=== PATIENT | female | born 1955 | race Caucasian/White ===

== ENCOUNTER 2024-08-15 05:53 | Inpatient (IN) | payer MEDICARE, OTHER ==
[~2024-08-15] VITALS: Ht 170.2 cm; Wt 69.9 kg
[2024-08-15] VITALS (17 sets, daily range): BP systolic 145–201; BP diastolic 71–101
[2024-08-15] MEDS ORDERED: Albuterol 2.5 MG/3 ML VIAL INH SCH ×2 (06:15→17:15)
[2024-08-15] MEDS ORDERED: MethylPREDNISolone Sod Succ 125 MG Vial IV ONE (06:15)
[2024-08-15 06:20] LABS: BASOPHILS PERCENT AUTO 1 % (0-2); EOSINOPHILS ABSOLUTE AUTO 0.57 K/mm3 (0.00-0.68); EOSINOPHILS PERCENT AUTO 3 % (0-6); Hematocrit 36.9 % (33.0-51.0); IMMATURE GRAN ABSOLUTE AUTO 0.11 K/mm3 (0.00-0.10); IMMATURE GRAN PERCENT AUTO 1 % (0-1); LYMPHOCYTES ABSOLUTE AUTO 2.71 K/mm3 (0.84-5.20); LYMPHOCYTES PERCENT AUTO 15 % (21-46); MONOCYTES PERCENT AUTO 6 % (4-13); Mean Corpuscular HGB 31.4 pg (26.0-34.0); Mean Corpuscular HGB Conc 32.5 g/dL (31.5-36.5); Mean Corpuscular Volume 97 fL (80-100); Mean Platelet Volume 9.8 fL (9.1-12.4); NEUTROPHILS ABSOLUTE AUTO 13.72 K/mm3 (1.96-9.15); NEUTROPHILS PERCENT AUTO 75 % (41-73); Platelet Count 476 K/mm3 (150-400); RDW Standard Deviation 49.6 fL (35.1-46.3); Red Blood Cell Count 3.82 M/mm3 (3.80-5.20); White Blood Cell Count 18.21 K/mm3 (4.00-11.30)
[2024-08-15] MEDS ORDERED: CefTRIAXone Sodium 1,000 MG in NS 100 ML IV ONE ×2 (06:35→09:30)
[2024-08-15] MEDS ORDERED: Azithromycin 500 MG in NS 250 ML IV ONE (06:35)
[2024-08-15 06:47] LABS: Albumin, Blood 3.5 g/dL (3.4-5.0); Albumin/Globulin Ratio 0.6 (0.8-1.8); Bilirubin, Total 0.4 mg/dL (0.1-1.0); Bun/Creatinine Ratio 10.2 (12.0-20.0); Calcium, Blood 9.1 mg/dL (8.5-10.1); Creatinine, Blood 7.93 mg/dL (0.40-1.00); Globulin, Blood 5.4 g/dL (2.2-4.0); Total Protein, Blood 8.9 g/dL (6.4-8.2)
[2024-08-15 07:27] LABS: Influenza A, PCR NEGATIVE (NEGATIVE); Influenza B, PCR NEGATIVE (NEGATIVE); SARS-Cov-2 (COVID-19) PCR, MMC NEGATIVE (NEGATIVE)
[2024-08-15 07:33] LABS: Resp Syncytial Virus, PCR POSITIVE (NEGATIVE)
[2024-08-15] MEDS ORDERED: ZINC OXIDE/PETROLATUM, YELLOW 1 APPLIC/71 GM PASTE TOP PRN (12:25)
[2024-08-15] MEDS ORDERED: ARTIFICIAL TEAR15 M2 (12:42)
[2024-08-15] MEDS ORDERED: GENTEAL TEARS3.5 GM (12:43)
[2024-08-15] MEDS ORDERED: VITAMIN B COMP1 EAC1 PO (12:44)
[2024-08-15] MEDS ORDERED: THERA-D2000 UNIT PO (12:44)
[2024-08-15] MEDS ORDERED: PSYLLIUM FIBER0.4 GM PO (12:45)
[2024-08-15] MEDS ORDERED: LOPE2C PO (12:45)
[2024-08-15] MEDS ORDERED: ASPIR 8181 M1 PO (12:47)
[2024-08-15] MEDS ORDERED: CARV3.125 PO (12:48)
[2024-08-15] MEDS ORDERED: GABA100 PO (12:48)
[2024-08-15] MEDS ORDERED: CLOP75 PO (12:48)
[2024-08-15] MEDS ORDERED: LOVA40 PO (12:48)
[2024-08-15] MEDS ORDERED: MIRT15 PO (12:49)
[2024-08-15] MEDS ORDERED: SEVELAMER HCL800 MG PO (12:52)
[2024-08-15] MEDS ORDERED: ALBUTEROL0.63 MG/3 INH (12:53)
[2024-08-15] MEDS ORDERED: TORSE20 (12:54)
[2024-08-15] MEDS ORDERED: Heparin Sodium,Porcine 5,000 UNIT/0.5 ML SDV SC SCH (14:00)
[2024-08-15] MEDS ORDERED: Artificial Tear Opth Oint 3.5 GM BOTHEYES PRN (14:45)
[2024-08-15] MEDS ORDERED: Sevelamer Carbonate 800 MG Tab PO PRN (14:50)
[2024-08-15] MEDS ORDERED: MUPIROCIN2210 (15:28)
[2024-08-15] MEDS ORDERED: ROPI.25 PO (15:37)
[2024-08-15] MEDS ORDERED: BENZ100A PO (15:43)
--- NOTE | 2024-08-15 16:17 | NUR ---
UPon receiving a referral for spiritual care, I visited the patient. Her son, Garland, is bedside. THe patietn tells me about her medical problems and the plan of care moving forward. She then talks about their travels to [place] to go to the of her dtr. She talks about her ros, their hoe in [place] and her son's insistance on bringing her to the hospital. I established therapeutic alignment, and listened empathically and provided prayer. Patient responded well and showed signs of being encouraged in her ros. I will continue to approach the issues of grief and loss, next visit.
[2024-08-15] MEDS ORDERED: Carvedilol 3.125 MG Tab PO SCH (17:00)
[2024-08-15] MEDS ORDERED: Ipratropium/Albuterol SulF 2.5-0.5MG/3 ML Amp INH PRN (17:15)
[2024-08-15] MEDS ORDERED: Sevelamer Carbonate 800 MG Tab PO SCH (17:30)
[2024-08-15] MEDS ORDERED: Albuterol 2.5 MG/3 ML VIAL INH PRN (17:40)
--- NOTE | 2024-08-15 18:03 | NUR ---
SHIFT ASSESSMENT: PT A&OX4. FOLLOWS COMMANDS AND MAKES NEEDS KNOWN TO STAFF. CALLS APPROPRIATELY. PT HAS DENIED ANY COMPLAINTS OF CP, PRESSURE OR TIGHTNESS DURING SHIFT. PT REPORTED SOB OFF AND ON DURING SHIFT. A DUONEB WAS ORDERED PER PROVIDER ORDERS. PT REPORTS RELIEF POST BREATHING TX. WAS ABLE TO GET UP TO BSC WITH 1P ASSIST. HAS BEEN CONTINENT ALL DAY. PLAN FOR DIALYSIS THIS EVENING. NO OTHER SIGNIFICANT EVENTS HAPPENED DURING THIS SHIFT. WILL CONTINUE TO CARE FOR PT TILL END OF SHIFT.
[2024-08-15] MEDS ORDERED: Mirtazapine 15 MG Tab PO SCH (21:00)
[2024-08-15] MEDS ORDERED: Gabapentin 100 MG Cap PO SCH (21:00)
[2024-08-15] MEDS ORDERED: Lactobacil 2-S.Thermo-Bifido 1 1 Cap PO SCH (21:00)
--- NOTE | 2024-08-15 22:30 | NUR ---
UPDATE PATIENT BACK TO ROOM FROM DIALYSIS. PATIENT HAS BEEN IN DIALYSIS SINCE AROUND 1900. ASSUMING CARE OF PATIENT AT THIS TIME. PATIENT ALERT, ORIENTED x3-4, FORGETFUL IN CONVERSATION. PATIENT HYPERTENSIVE AFTER DIALYSIS, PER BOW STAPLER, PATIENT HYPERTENSIVE DURING TREATMENT WELL. ON 2L NC WITH SPO2 >90%. TELE READING SR 80s. PATIENT REQUESTING FOOD. HAS CALL LIGHT IN REACH.
[2024-08-16] VITALS (24 sets, daily range): BP systolic 129–182; BP diastolic 68–98
[2024-08-16] MEDS ORDERED: HydrALAZINE HCl 20 MG / ML 1ML Vial IV PRN (00:35)
[2024-08-16 04:16] LABS: BASOPHILS ABSOLUTE AUTO 0.04 K/mm3 (0.00-0.23); BASOPHILS PERCENT AUTO 0 % (0-2); EOSINOPHILS PERCENT AUTO 0 % (0-6); Hematocrit 28.6 % (33.0-51.0); Hemoglobin 9.5 g/dL (11.5-16.0); IMMATURE GRAN ABSOLUTE AUTO 0.07 K/mm3 (0.00-0.10); IMMATURE GRAN PERCENT AUTO 1 % (0-1); LYMPHOCYTES PERCENT AUTO 17 % (21-46); MONOCYTES ABSOLUTE AUTO 1.05 K/mm3 (0.16-1.47); MONOCYTES PERCENT AUTO 7 % (4-13); Mean Corpuscular HGB 30.7 pg (26.0-34.0); Mean Corpuscular HGB Conc 33.2 g/dL (31.5-36.5); Mean Corpuscular Volume 93 fL (80-100); Mean Platelet Volume 10.2 fL (9.1-12.4); NEUTROPHILS PERCENT AUTO 75 % (41-73); Platelet Count 385 K/mm3 (150-400); RDW Coefficient Variation 13.8 % (11.7-14.2); RDW Standard Deviation 46.3 fL (35.1-46.3); Red Blood Cell Count 3.09 M/mm3 (3.80-5.20); White Blood Cell Count 14.16 K/mm3 (4.00-11.30)
[2024-08-16 04:45] LABS: Albumin/Globulin Ratio 0.7 (0.8-1.8); Bilirubin, Total 0.3 mg/dL (0.1-1.0); Calcium, Blood 8.7 mg/dL (8.5-10.1); Creatinine, Blood 4.23 mg/dL (0.40-1.00); Globulin, Blood 4.5 g/dL (2.2-4.0); Magnesium, Blood 2.1 mg/dL (1.6-2.4); Phosphorus, Blood 4.3 mg/dL (2.5-4.9); Potassium, Blood 4.1 mmol/L (3.5-5.5); Total Protein, Blood 7.5 g/dL (6.4-8.2)
[2024-08-16] MEDS ORDERED: Vitamin B Cmplx/Vit C/Folic Ac 1 Tab PO SCH (06:00)
--- NOTE | 2024-08-16 06:06 | NUR ---
SHIFT SUMMARY PATIENT ALERT, ORIENTED x4. ABLE TO MAKE NEEDS KNOWN. BP HYPERTENSIVE DURING THE NIGHT, MEDICATED WITH PRNs. TELE READING SR. ON 2L NC WITH SPO2 >95%. PATIENT RECEIVED DIALYSIS AT START OF SHIFT FOR ABOUT 4 HOURS. PATIENT STATES SHE RARELY MAKES URINE. NO OTHER CHANGES THIS SHIFT, WILL REPORT TO DAY SHIFT RN.
[2024-08-16] MEDS ORDERED: CefTRIAXone Sodium 2,000 MG in NS 100 ML IV SCH (09:00)
[2024-08-16] MEDS ORDERED: Cholecalciferol 1000 Unit Tablet (=25MCG) PO SCH (09:00)
[2024-08-16] MEDS ORDERED: Aspirin 81 MG TabEC PO SCH (09:00)
[2024-08-16] MEDS ORDERED: Clopidogrel Bisulfate 75 MG Tab PO SCH (09:00)
[2024-08-16] MEDS ORDERED: Sodium Zirconium Cyclosilicate 10 GM Packet PO SCH (09:00)
[2024-08-16] MEDS ORDERED: Azithromycin 250 MG Tab PO SCH (09:00)
[2024-08-16] MEDS ORDERED: Atorvastatin 40 MG Tab PO SCH (09:00)
[2024-08-16] MEDS ORDERED: Torsemide 20 MG TAB PO SCH (09:00)
--- NOTE | 2024-08-16 10:16 | NUR ---
am note this rn assumed care at 0700. vital signs stable. patient on 2l nc with spo2 >97%, and patient oxygen off and on room air and spo2 remains greater than 95%. patient blood pressure hypertensive and received morning medications. patient is alert and oriented x4. neuro is intact. perrla. patient is able to make needs known and uses call light appropriately. patient denies pain, chest pain./pressure or shortness of breath. 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 patient has pressure injuries to her left foot and pictures in the chart, see orders for wound care orders. due to this injury patient says she is partial weight bearing. patient upper lung espinoza are clear and lower lobes have fine dim crackles. see shift assessment for fruther detials. Md Yap in to see patient around 0716 this morning and switched patient to medical status no tele. Patient to dialysis at 0915 and remains at dialysis at this time. Plan to continue abx and dialysis and discharge home tomorrow.
--- NOTE | 2024-08-16 12:20 | NUR ---
update patient back to room from dialysis
--- NOTE | 2024-08-16 17:11 | NUR ---
update this rn called md resendiz at 1706 and was unable to get in touch at this time to inform of blood sugar of 200 and that there is not any coverage
[2024-08-16] MEDS ORDERED: Insulin Human Lispro 100 Units/ML 3ML Syringe SC SCH ×2 (17:35→21:00)
[2024-08-16] MEDS ORDERED: Cefdinir 300 MG Cap PO SCH (18:00)
--- NOTE | 2024-08-16 18:28 | NUR ---
shift summary no acute changes this shift. plan for discharge tomorrow. plan remains up to date.
[2024-08-16] MEDS ORDERED: Arginine/Glutamine/Calcium Hmb 1 Packet PO SCH (21:00)
[2024-08-17] VITALS (14 sets, daily range): BP systolic 148–181; BP diastolic 67–92
[2024-08-17] MEDS ORDERED: Melatonin 3 MG Tab PO PRN (00:55)
--- NOTE | 2024-08-17 04:13 | NUR ---
SHIFT SUMMARY: PT AOX4, ABLE TO MAKE NEEDS KNOWN TO STAFF. NO ACUTE CHANGES THIS SHIFT. DENIES CP/PRESSURE, RECOVERING FROM RSV AND HAD CHEST TIGHTNESS EARLIER IN THE SHIFT AND WAS RELIEVED W/ BREATHING TX FROM RESP CARE. PLAN FOR DC HOME TODAY, BED AT LOWEST HEIGHT AND CALL LIGHT WITHIN REACH.
[2024-08-17 04:22] LABS: Hematocrit 27.5 % (33.0-51.0)
[2024-08-17 04:40] LABS: Albumin, Blood 2.9 g/dL (3.4-5.0); Anion Gap 11 mmol/L (3-11); Blood Urea Nitrogen 49 mg/dL (8-24); Bun/Creatinine Ratio 13.6 (12.0-20.0); CO2, Blood 34 mmol/L (21-32); Calcium, Blood 8.4 mg/dL (8.5-10.1); Chloride, Blood 91 mmol/L (98-108); Creatinine, Blood 3.61 mg/dL (0.40-1.00); Glomerular Filtration Rate 13 (60-); Glucose, Blood 135 mg/dL (70-99); Magnesium, Blood 2.1 mg/dL (1.6-2.4); Phosphorus, Blood 3.6 mg/dL (2.5-4.9); Potassium, Blood 3.8 mmol/L (3.5-5.5); Sodium, Blood 132 mmol/L (136-145)
--- NOTE | 2024-08-17 09:20 | NUR ---
am note this rn assumed care at 0700. vital signs stable. patient is alert and oriented x4. neuro is intact and patient is able to make needs known and uses call light appropriately. patient denies pain, chest pain/pressure or shortness of breath. see shift assessment for further detials. Md Yap in the room this morning at 0710 and discussed plan for patient to be discharge home after dialysis. Md Santiago in room at 0855 and discussed plan for patient to be discharged home today.
[2024-08-17] MEDS ORDERED: JUVEN PACKET1 EA10 PO (11:35)
[2024-08-17] MEDS ORDERED: CEFD300 PO (11:37)
[2024-08-17] MEDS ORDERED: PROBIOTIC ACID1 EAC8 PO (11:37)
--- NOTE | 2024-08-17 12:16 | NUR ---
discharge education this rn went over discharge education with patient and patient son. medications faxed to [facility]. patient packed belongings up. patient bp elevated on post dsicharge vitals. this rn called md resendiz to notify. no new orders at this time. this rn updated patient and family on awaiting orders to address blood pressure of 181/79.
--- NOTE | 2024-08-17 13:04 | NUR ---
DISCHARGE NOTE this rn called md resendiz at 1230 in regards to blood pressure due to son asking. patient is not symptomatic and since patient is not symptomatic md resendiz is okay with patient being discharged and follow up with pcp. this rn informed patient and patient sons. they verbalized understanding. wound care done before patient discharged. patient left with all belongings and in no distress.
[2024-08-17 15:00] LABS: HEPATITIS B SURFACE ANTIBODY >1000.00 IU/L
[2024-08-17 15:14] LABS: HEPATITIS B SURFACE ANTIGEN Negative (Negative)
[2024-08-17 15:33] LABS: HBV CORE ANTIBODIES,TOTAL Negative (Negative)
== END 2024-08-17 13:01 | disposition home or self-care (01) | DRG 871 ==
LOC: ER 05:53 → PCU 09:20
PROVIDERS: Emergency Medicine; Family Medicine; Internal Medicine Nephrology; ADMIT Hospitalist
PROC: 3E03329 Introduction of Other Anti-infective into Peripheral Vein, Percutaneous Approach (ICD-10-PCS; principal; 2024-08-15)
PROC: 5A1D70Z Performance of Urinary Filtration, Intermittent, Less than 6 Hours Per Day (ICD-10-PCS; 2024-08-15)
DX: A41.9 Sepsis, unspecified organism (principal); N18.6 End stage renal disease; I12.0 Hypertensive chronic kidney disease with stage 5 chronic kidney disease or end stage renal disease; E87.1 Hypo-osmolality and hyponatremia; J21.0 Acute bronchiolitis due to respiratory syncytial virus; E87.6 Hypokalemia; E87.5 Hyperkalemia; L97.519 Non-pressure chronic ulcer of other part of right foot with unspecified severity; E78.5 Hyperlipidemia, unspecified; E11.22 Type 2 diabetes mellitus with diabetic chronic kidney disease; D63.1 Anemia in chronic kidney disease; Z79.899 Other long term (current) drug therapy; Z79.82 Long term (current) use of aspirin; Z91.013 Allergy to seafood; Z88.8 Allergy status to other drugs, medicaments and biological substances; Z91.018 Allergy to other foods; Z91.048 Other nonmedicinal substance allergy status; Z89.512 Acquired absence of left leg below knee; Z87.891 Personal history of nicotine dependence
CPT/HCPCS: 0241U; 36415; 71045; 80053; 80069; 82947; 83036; 83605; 83735; 84100; 84145; 84484; 85014; 85018; 85025; 86704; 87040; 87340; 93005; 93010; 94640; 94664; 94760; 94762; 96365; 96375; 99285-25; A9270; J0360; J0456; J0696; J1644; J2919; J7050